=== PATIENT | female | born 1985 | race Asian ===

== ENCOUNTER 2017-03-20 14:56 | Outpatient (CLI) | payer OTHER ==
[~2017-03-20] VITALS: Ht 170.2 cm; Wt 81.3 kg
== END 2017-03-20 17:00 | disposition home or self-care (01) ==
LOC: INF 14:56
DX: J32.8 Other chronic sinusitis (principal); K08.89 Other specified disorders of teeth and supporting structures; E86.0 Dehydration
CPT/HCPCS: 96361; 96374; 96375; J1885; J2930

== ENCOUNTER 2017-04-19 13:06 | Emergency (ER) | payer OTHER ==
[~2017-04-19] VITALS: Ht 170.2 cm; Wt 81.2 kg
[2017-04-19 13:18] VITALS: BP 134/79; TEMP 98.6
== END 2017-04-19 14:13 | disposition home or self-care (01) ==
LOC: ED 13:06
DX: R10.2 Pelvic and perineal pain (principal); N89.8 Other specified noninflammatory disorders of vagina; N76.0 Acute vaginitis; Z30.432 Encounter for removal of intrauterine contraceptive device
CPT/HCPCS: 99285

== ENCOUNTER 2017-09-30 19:03 | Emergency (ER) | payer OTHER ==
[~2017-09-30] VITALS: Ht 170.2 cm; Wt 78.9 kg
[2017-09-30 19:19] VITALS: BP 111/62; TEMP 98.5
== END 2017-09-30 20:40 | disposition home or self-care (01) ==
LOC: ED 19:03
DX: K59.09 Other constipation (principal)
CPT/HCPCS: 99282

== ENCOUNTER 2018-09-07 06:44 | Emergency (ER) | payer OTHER ==
[~2018-09-07] VITALS: Ht 170.2 cm; Wt 67.6 kg
[2018-09-07 06:56] VITALS: TEMP 98.2
[2018-09-07 08:44] VITALS: BP 128/72
== END 2018-09-07 08:44 | disposition home or self-care (01) ==
LOC: ED 06:44
DX: T78.1XXA Other adverse food reactions, not elsewhere classified, initial encounter (principal); R00.0 Tachycardia, unspecified
CPT/HCPCS: 93005; 96372; 96374; 99284; J0171; J2930

== ENCOUNTER 2018-09-09 17:05 | Outpatient (CLI) | payer OTHER | END 2018-09-09 17:08 | disposition short-term general hospital (02) | LOC: AMB 17:05 | DX: T78.1XXA Other adverse food reactions, not elsewhere classified, initial encounter (principal) | CPT/HCPCS: A0425; A0427 ==

== ENCOUNTER 2018-09-09 17:12 | Emergency (ER) | payer OTHER ==
[~2018-09-09] VITALS: Ht 170.2 cm; Wt 67.6 kg
[2018-09-09 18:14] VITALS: BP 109/64; TEMP 98
== END 2018-09-09 18:14 | disposition home or self-care (01) ==
LOC: ED 17:12
DX: T78.49XA Other allergy, initial encounter (principal)
CPT/HCPCS: 99282

== ENCOUNTER 2018-09-10 17:00 | Emergency (ER) | payer OTHER ==
[~2018-09-10] VITALS: Ht 170.2 cm; Wt 67.6 kg
[2018-09-10 17:12] VITALS: BP 112/74; TEMP 98.2
== END 2018-09-10 21:00 | disposition home or self-care (01) ==
LOC: ED 17:00
DX: R10.84 Generalized abdominal pain (principal); M79.605 Pain in left leg; M79.604 Pain in right leg
CPT/HCPCS: 99282

== ENCOUNTER 2018-09-11 12:31 | Outpatient (CLI) | payer OTHER ==
[2018-09-11 13:07] LABS: POTASSIUM 3.5 mmol/L (3.6-5.2)
== END 2018-09-11 21:08 | disposition home or self-care (01) ==
LOC: LABW 12:31
PROVIDERS: Nurse Practitioner Family
DX: E86.0 Dehydration (principal)
CPT/HCPCS: 36415; 80053; 82550

== ENCOUNTER 2019-06-08 03:05 | Emergency (ER) | payer OTHER ==
[~2019-06-08] VITALS: Ht 170.2 cm; Wt 67.1 kg
[2019-06-08 03:54] VITALS: BP 118/88; TEMP 98.3
== END 2019-06-08 03:54 | disposition home or self-care (01) ==
LOC: ED 03:05
DX: K08.89 Other specified disorders of teeth and supporting structures (principal); K02.9 Dental caries, unspecified
CPT/HCPCS: 99283

== ENCOUNTER 2019-09-23 14:27 | Outpatient (CLI) | payer OTHER ==
[~2019-09-23] VITALS: Ht 170.2 cm; Wt 72.6 kg
[2019-09-23 14:35] VITALS: BP 124/84; TEMP 98.6
== END 2019-09-23 16:12 | disposition home or self-care (01) ==
LOC: INF 14:27
DX: D50.9 Iron deficiency anemia, unspecified (principal)
CPT/HCPCS: 96365; J1439

== ENCOUNTER 2020-04-01 14:51 | Emergency (ER) | payer OTHER ==
[~2020-04-01] VITALS: Ht 170.2 cm; Wt 91.6 kg
[2020-04-01 15:05] VITALS: BP 143/84; TEMP 98
== END 2020-04-01 16:30 | disposition home or self-care (01) ==
LOC: ED 14:51
DX: G44.209 Tension-type headache, unspecified, not intractable (principal); S16.1XXA Strain of muscle, fascia and tendon at neck level, initial encounter; V43.52XA Car driver injured in collision with other type car in traffic accident, initial encounter; Y92.410 Unspecified street and highway as the place of occurrence of the external cause
CPT/HCPCS: 96372; 99283; J1885

== ENCOUNTER 2020-05-09 21:24 | Emergency (ER) | payer OTHER ==
[~2020-05-09] VITALS: Ht 170.2 cm; Wt 91.6 kg
[2020-05-10 00:16] VITALS: BP 132/94; TEMP 98.2
== END 2020-05-10 00:20 | disposition home or self-care (01) ==
LOC: ED 21:24
DX: T78.49XA Other allergy, initial encounter (principal)
CPT/HCPCS: 96365; 96375; 99284; J1100; J1200

== ENCOUNTER 2020-09-25 10:53 | Outpatient (CLI) | payer OTHER | END 2020-09-25 19:39 | disposition home or self-care (01) | LOC: US 10:53 | PROVIDERS: ATTEND Family Medicine | DX: Z32.00 Encounter for pregnancy test, result unknown (principal) | CPT/HCPCS: 36415; 84702 ==

== ENCOUNTER 2021-06-23 10:29 | Emergency (ER) | payer OTHER ==
[~2021-06-23] VITALS: Ht 170.2 cm; Wt 99.8 kg
[2021-06-23 10:39] VITALS: TEMP 97
[2021-06-23 11:32] VITALS: BP 133/84
== END 2021-06-23 11:32 | disposition home or self-care (01) ==
LOC: ED 10:29
DX: M79.18 Myalgia, other site (principal); M54.2 Cervicalgia; M54.59 Other low back pain
CPT/HCPCS: 96372; 99283; J1885; J2930

== ENCOUNTER 2021-10-28 20:48 | Emergency (ER) | payer OTHER ==
[~2021-10-28] VITALS: Ht 170.2 cm; Wt 81.6 kg
[2021-10-28 22:24] LABS: PLATELET COUNT 341 K/uL (152-353)
[2021-10-28 23:31] VITALS: BP 138/88; TEMP 98.3
== END 2021-10-28 23:31 | disposition home or self-care (01) ==
LOC: ED 20:48
PROVIDERS: Emergency Medicine Emergency Medical Services
DX: N93.9 Abnormal uterine and vaginal bleeding, unspecified (principal); N39.0 Urinary tract infection, site not specified
CPT/HCPCS: 36415; 81000; 84702; 85008; 85027; 99284

== ENCOUNTER 2022-02-25 13:46 | Outpatient (CLI) | payer OTHER | END 2022-02-25 19:13 | disposition home or self-care (01) | LOC: RAD 13:46 | PROVIDERS: ATTEND Nurse Practitioner Family | DX: M54.59 Other low back pain (principal); M62.838 Other muscle spasm ==

== ENCOUNTER 2023-01-12 15:55 | Outpatient (CLI) | payer OTHER | END 2023-01-12 20:13 | disposition home or self-care (01) | LOC: US 15:55 | PROVIDERS: ATTEND Family Medicine | DX: N94.6 Dysmenorrhea, unspecified (principal) ==